=== PATIENT | male | born 2000 | race Two or more races ===

== ENCOUNTER 2024-03-24 22:46 | Emergency (ER) | payer BC, OTHER ==
[~2024-03-24] VITALS: Ht 175.3 cm; Wt 81.2 kg
[2024-03-24 23:00] VITALS: PULSE 97; RESP 20; O2SAT 98
[2024-03-24] MEDS: MORPHINE SULFATE 4 MG/ML SYR/VIAL IV ONE (23:29)
[2024-03-24] MEDS: ceFAZolin 1GM/50ML 50 ML IV ONE (23:30)
[2024-03-24] MEDS: TETANUS-DIPTH-ACEL PERTUSSIS 0.5ML SYR Tdap IM ONE (23:53)
[2024-03-25] MEDS: MORPHINE SULFATE 4 MG/ML SYR/VIAL IV ONE ×2 (00:28→02:01)
[2024-03-25 03:15] VITALS: BP 128/66; PULSE 107; RESP 20; TEMP 97.9; O2SAT 93
== END 2024-03-25 03:37 | disposition short-term general hospital (02) ==
LOC: ER 22:46
DX: S62.393B Other fracture of third metacarpal bone, left hand, initial encounter for open fracture (principal); S62.395B Other fracture of fourth metacarpal bone, left hand, initial encounter for open fracture; S62.397B Other fracture of fifth metacarpal bone, left hand, initial encounter for open fracture; V49.9XXA Car occupant (driver) (passenger) injured in unspecified traffic accident, initial encounter; Y93.89 Activity, other specified; Y92.488 Other paved roadways as the place of occurrence of the external cause; Y99.8 Other external cause status
CPT/HCPCS: 73110; 73130; 90471; 90715; 96365; 96375; 96376; 99291; J0690; J2270